=== PATIENT | male | born 1990 | race Two or more races ===

== ENCOUNTER 2025-01-05 11:05 | Emergency (ER) | payer OTHER ==
[~2025-01-05] VITALS: Ht 170.2 cm; Wt 64.4 kg
[2025-01-05] MEDS ORDERED: KETOROLAC TROMETHAMINE 30 MG VIAL IM ONE (11:45)
[2025-01-05] MEDS ORDERED: KETOROLAC TROMETHAMINE 30 MG VIAL ONE (12:17)
== END 2025-01-05 13:39 | disposition home or self-care (01) ==
LOC: ER 11:06
DX: S93.402A Sprain of unspecified ligament of left ankle, initial encounter (principal); X58.XXXA Exposure to other specified factors, initial encounter; Y93.89 Activity, other specified; Y92.89 Other specified places as the place of occurrence of the external cause; Y99.9 Unspecified external cause status